=== PATIENT | male | born 1985 | race Caucasian/White ===

== ENCOUNTER 2016-07-30 10:50 | Emergency (ER) | payer BC ==
--- NOTE | 2016-07-30 11:22 | ERPHSYRPT ---
- History of Present Illness Time Seen by Provider: 07/30/16 11:17 Source: patient Exam Limitations: no limitations Patient Subjective Stated Complaint: pt states he was sitting at work and developed lower left back pain. denies any injury. denies any dysuria. denies any fever. Triage Nursing Assessment: pt pink, warm, dry. pt ambulated into er without difficulty. No swelling noted. Physician History: The patient is a 30-year-old male who developed left-sided low back pain while sitting at work this morning. It has begun to ease at this time. He denies injury to his back. He notes that 2 weeks ago he had same pain and after resting for a few minutes, the pain resolved. His past medical history is unremarkable. Timing/Duration: today Method of Injury: unknown Quality: aching Back Pain Location: paraspinous muscles (left) Severity of Pain-Max: severe Severity of Pain-Current: mild Modifying Factors: Improves With: nothing Associated Symptoms: denies symptoms Previous symptoms: same symptoms as today Allergies/Adverse Reactions: caffeine Allergy (Verified 07/30/16 11:10) red dye Allergy (Verified 07/30/16 11:10) Hx Tetanus, Diphtheria Vaccination/Date Given: Yes (up to date) Hx Influenza Vaccination/Date Given: No Hx Pneumococcal Vaccination/Date Given: No Immunizations Up to Date: Yes - Review of Systems Constitutional: No Fever, No Chills Eyes: No Symptoms Ears, Nose, & Throat: No Symptoms Respiratory: No Cough, No Dyspnea Cardiac: No Chest Pain, No Edema, No Syncope Abdominal/Gastrointestinal: No Abdominal Pain, No Nausea, No Vomiting, No Diarrhea Genitourinary Symptoms: No Dysuria Musculoskeletal: Back Pain Skin: No Rash Neurological: No Dizziness, No Focal Weakness, No Sensory Changes Psychological: No Symptoms Endocrine: No Symptoms Hematologic/Lymphatic: No Symptoms Immunological/Allergic: No Symptoms All Other Systems: Reviewed and Negative - Past Medical History Pertinent Past Medical History: Yes Other Medical History: thin bowel syndrome - Past Surgical History Past Surgical History: No - Social History Smoking Status: Current every day smoker How long have you smoked: 9 Exposure to second hand smoke: No Drug Use: none Patient Lives Alone: No - Nursing Vital Signs Temperature: 97.9 F Temperature Source: Oral Pulse Rate: 80 Respiratory Rate: 18 Pain Intensity: 3 - Physical Exam General Appearance: mild distress Eye Exam: PERRL/EOMI, eyes nml inspection Ears, Nose, Throat Exam: normal ENT inspection Neck Exam: normal inspection, non-tender, supple, full range of motion, No meningismus, No midline tenderness Respiratory Exam: normal breath sounds, lungs clear, No respiratory distress Cardiovascular Exam: regular rate/rhythm, normal heart sounds Gastrointestinal Exam: soft, No tenderness, No mass Rectal Exam: not done Back Exam: muscle spasm (lower left paraspinous) Extremity Exam: normal inspection, normal range of motion, No calf tenderness, No pedal edema Neurologic Exam: alert, oriented x 3, cooperative, spiritual advisor II-XII nml as tested, normal mood/affect, nml station & gait, sensation nml, No motor deficits Skin Exam: normal color, warm, dry, No rash SpO2 Interpretation: normal SpO2: 97 Oxygen Delivery: Room Air Ordered Tests: Medication Summary Generic Name Dose Route Start Last Admin Trade Name Freq PRN Reason Stop Dose Admin Ketorolac Tromethamine 60 mg 07/30/16 11:27 Toradol 30 Mg Injection IM 07/30/16 11:28 STAT ONE - Progress Progress: improved Counseled pt/family regarding: diagnosis, need for follow-up - Departure Time of Disposition: 11:27 Departure Disposition: Home Clinical Impression: Back spasm Condition: Stable Critical Care Time: No Additional Instructions: You have a spasm in the left back muscle. You given an injection of toradol 60 mg IM. Take flexeril 10 mg every 8 hrs as needed. Apply ice as needed. If the condition returns, please follow up with you PMD for further evaluation. Prescriptions: Cyclobenzaprine HCl [Flexeril] 10 mg PO TID PRN #12 tablet
[2016-07-30] MEDS ORDERED: TORAdol 30 mg Injection IM ONE (11:27)
[2016-07-30] MEDS ORDERED: TORAdol 30 mg Injection ONE (11:30)
[2016-07-30 12:01] VITALS: BP 105/59; PULSE 85; O2SAT 98
== END 2016-07-30 12:01 | disposition home or self-care (01) ==
LOC: ED 10:50
DX: M62.830 Muscle spasm of back (principal); M54.5 Low back pain
CPT/HCPCS: 96372; 99284; J1885

== ENCOUNTER 2016-09-12 14:24 | Emergency (ER) | payer BC ==
[2016-09-12 14:33] VITALS: O2SAT 97
[2016-09-12] MEDS ORDERED: TORAdol 30 mg Injection IM ONE (14:45)
[2016-09-12] MEDS ORDERED: TORAdol 30 mg Injection ONE (14:49)
--- NOTE | 2016-09-12 14:51 | ERPHSYRPT ---
- History of Present Illness Time Seen by Provider: 09/12/16 14:40 Source: patient Exam Limitations: no limitations Patient Subjective Stated Complaint: back pain Triage Nursing Assessment: back pain started today. states started having a back spasm and took a zanaflex and is scheduled for PT on 09/27. denies injury. c /o lt lower back pain and radiates to lt knee Physician History: 30-year-old white male arrives with complaint of pain in his back low left thorasic region which she describes as a spasm which occurred at 1:00 this afternoon at work he states this was quite severe he states he took a Zanaflex and some Naprosyn history the feel better but still has some tenderness. Patient states he has had x-rays for his back is also been seen in this emergency room secondary to this same pain and got good relief with Toradol. Patient states he has an appointment to see physical therapy for his back pain on September 27, 2016. Past medical history includes thin bowel syndrome patient has not had any urinary symptoms no other complaints Timing/Duration: today (1:00 this afternoon) Method of Injury: other (spasmmile at work) Quality: cramping Back Pain Location: T-spine (low thoracic left) Back Pain Radiation: upper legs (left knee) Severity of Pain-Max: moderate Severity of Pain-Current: mild Modifying Factors: Improves With: movement Associated Symptoms: lower back pain (low thorasic left), No fever, No chills, No sweating, No urinary incontinence, No loss of bowel control, No constipation , No nausea, No vomiting, No problems urinating, No light-headedness, No dizziness, No numbness in legs/feet, No weakness, No sensory/motor loss, No tingling in legs/feet, No muscle spasms Previous symptoms: same symptoms as today, recently seen (seen last month for same complaint in this ER) Allergies/Adverse Reactions: caffeine Allergy (Verified 09/12/16 14:32) red dye Allergy (Verified 09/12/16 14:32) Home Medications: Tizanidine HCl 4 mg [Zanaflex 4 MG] 4 mg PO TIDPRN 09/12/16 [History] Hx Tetanus, Diphtheria Vaccination/Date Given: Yes Hx Influenza Vaccination/Date Given: No Hx Pneumococcal Vaccination/Date Given: No Immunizations Up to Date: Yes - Review of Systems Constitutional: No Fever, No Chills Eyes: No Symptoms Ears, Nose, & Throat: No Symptoms Respiratory: No Cough, No Dyspnea Cardiac: No Chest Pain, No Edema, No Syncope Abdominal/Gastrointestinal: No Abdominal Pain, No Nausea, No Vomiting, No Diarrhea Genitourinary Symptoms: No Dysuria Musculoskeletal: Back Pain, No Arthralgias, No Neck Pain, No Deformity, No Fall , No Injury, No Joint Redness, No Joint Pain, No Joint Swelling, No Myalgias Skin: No Rash Neurological: No Dizziness, No Focal Weakness, No Sensory Changes Psychological: No Symptoms Endocrine: No Symptoms All Other Systems: Reviewed and Negative - Past Medical History Pertinent Past Medical History: Yes Other Medical History: thin bowel syndrome - Past Surgical History Past Surgical History: No - Social History Smoking Status: Current every day smoker How long have you smoked: 9 Exposure to second hand smoke: No Drug Use: none Patient Lives Alone: No - Nursing Vital Signs Temperature: 97.7 F Temperature Source: Oral Pulse Rate: 87 Respiratory Rate: 18 Pain Intensity: 4 - Physical Exam General Appearance: no apparent distress, mild distress, alert Eye Exam: PERRL/EOMI, eyes nml inspection Ears, Nose, Throat Exam: normal ENT inspection, TMs normal, pharynx normal, moist mucous membranes, No dry mucous membranes, No TM abnormal (R), No TM abnormal (L), No pharyngeal erythema Neck Exam: normal inspection, non-tender, supple, full range of motion, No meningismus, No midline tenderness Respiratory Exam: normal breath sounds, lungs clear, No respiratory distress Cardiovascular Exam: regular rate/rhythm, normal heart sounds Gastrointestinal Exam: soft, normal bowel sounds, No tenderness, No mass Back Exam: normal range of motion, 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) Extremity Exam: normal inspection, normal range of motion, No calf tenderness, No pedal edema Peripheral Pulses: dorsalis-pedis (R): 2+, dorsalis-pedis (L): 2+ Neurologic Exam: alert, oriented x 3, cooperative, insurance loss control surveyor II-XII nml as tested, normal mood/affect, nml station & gait, sensation nml, No motor deficits Skin Exam: normal color, warm, dry, No rash SpO2 Interpretation: normal (97%) SpO2: 97 Oxygen Delivery: Room Air - Course Nursing assessment & vital signs reviewed: Yes Ordered Tests: Active Orders 24 hr Category Date Time Status UA W/ MICROSCOPIC Stat Lab 09/12/16 14:55 Completed Medication Summary Discontinued Medications Generic Name Dose Route Start Last Admin Trade Name Yo PRN Reason Stop Dose Admin Ketorolac Tromethamine 60 mg 09/12/16 14:45 09/12/16 14:50 Toradol 30 Mg Injection IM 09/12/16 14:46 60 mg STAT ONE Administration Ketorolac Tromethamine Confirm 09/12/16 14:49 Toradol 30 Mg Injection Administered 09/12/16 14:50 Dose 60 mg .ROUTE .STK-MED ONE Lab/Rad Data: Laboratory Results 09/12/16 Range/Units 14:55 Ur Collection Type CCMS Urine Color PETEY (YELLOW) Urine Appearance CLEAR (CLEAR) Urine pH 6.5 (5-6) Ur Specific [place] >=1.030 (1.005-1.025) Urine Protein >=300 (Negative) Urine Glucose (UA) NEGATIVE (NEGATIVE) mg/dL Urine Ketones SMALL-15 (NEGATIVE) Urine Nitrite NEGATIVE (NEGATIVE) Urine Bilirubin SMALL (NEGATIVE) Urine Urobilinogen 0.2 (0-1) mg/dL Urine WBC (Auto) NEGATIVE (NEGATIVE) Urine RBC (Auto) TRACE-INTACT (0-5) Giorgi/ul Urine Microscopic RBC 2-5 (0-2) /HPF Urine Microscopic WBC 0-2 (0-5) /HPF Urine Bacteria FEW (NEGATIVE) /HPF Urine Mucus MANY (NEGATIVE) /HPF Urine Sperm PRESENT (NEGATIVE) /HPF Specimen Received 09-12-16 1509 - Progress Progress: improved Progress Note: 09/12/16 14:49 30-year-old white male with history of low left thorasic back pain in the past he has back spasms and is on Xanaflex, arrives with complaint of pain in his left low thorasic region at work at 1:00 patient states it is quite severe he took a Zanaflex and Naprosyn he is starting to feel better but still has pain. Patient has had x-rays of his back he is also been set up for physical therapy through his work. Patient was seen in this emergency room about a month ago for the same he got good relief with Toradol. Will give patient Toradol IM. 09/12/16 14:54 09/12/16 15:24 Patient is feeling better after Toradol. Patient does have some protein in his urine also a small amount of ketones. Patient is advised to go ahead and take his Zanaflex as directed Tylenol for pain avoid nonsteroidals at this point in time. He is to increase his fluid intake. He has been advised to follow-up with his family doctor due to protein in his urine and have this rechecked. And follow-up with his company physician and/or physical therapy for his back spasms. - Departure Time of Disposition: 15:25 Departure Disposition: Home Clinical Impression: Back spasm Back pain Qualifiers: Back pain location: thoracic back pain Chronicity: acute Back pain laterality: left Qualified Code(s): M54.6 - Pain in thoracic spine Proteinuria Qualifiers: Proteinuria type: unspecified Qualified Code(s): R80.9 - Proteinuria, unspecified Condition: Fair Critical Care Time: No Referrals: JESSIE PHILLIPS [Primary Care Provider] - Additional Instructions: Return home. Take your Zanaflex as directed (you have this at home) as needed for spasms. Tylenol as needed for pain. Avoid nonsteroidal anti-inflammatories at this time. Follow-up with your family doctor (you have protein in your urine this needs to be followed up with your family doctor) Follow-up with your family doctor or your company physician or PT for back spasms. Return for acute distress or for severe symptoms.
[2016-09-12 15:19] LABS: COMPLETE URINE MICROSCOPIC? YES; Collection Type CCMS; Ph 6.5 (5-6)
[2016-09-12 15:20] LABS: Bacteria FEW /HPF (NEGATIVE); Mucus MANY /HPF (NEGATIVE); WBC 0-2 /HPF (0-5)
[2016-09-12 15:33] VITALS: BP 126/78; PULSE 84
== END 2016-09-12 15:33 | disposition home or self-care (01) ==
LOC: ED 14:24
DX: M54.6 Pain in thoracic spine (principal); R80.9 Proteinuria, unspecified; M62.830 Muscle spasm of back
CPT/HCPCS: 81000; 96372; 99283; 99284; J1885

== ENCOUNTER 2016-10-05 10:14 | Emergency (ER) | payer BC ==
[2016-10-05] MEDS ORDERED: TORAdol 30 mg Injection IM ONE (10:41)
[2016-10-05] MEDS ORDERED: Norflex 60 MG/2 ML IM ONE (10:42)
--- NOTE | 2016-10-05 10:51 | ERPHSYRPT ---
- History of Present Illness Time Seen by Provider: 10/05/16 10:31 Source: patient, family () Exam Limitations: no limitations Patient Subjective Stated Complaint: having lower back spasms. hx of chronic back pain being treated with physical therapy and xanaflex Triage Nursing Assessment: ambulated slowly to room holding lower back. skin w/ d, color normal. describes pain as a spasm. Physician History: patient developed acute left lower back spasm and pain while walking this am; prior hx off and on for four months; this is fourth acute exacerbation; no known cause or initial event; no prior hx before; no injury; XR and lab including urine negative in past; rehab and PT and meds not working; took pain meds and muscle relaxer in am; pain form 10 - 6; heading out on vacation; poain increased with motion that uses back muscles on left; no radiation; no fefver or trauma; no exposures; no hematuria Timing/Duration: today, hour(s) (3) Method of Injury: unknown Quality: dull, cramping Back Pain Location: lumbar spine (left) Severity of Pain-Max: severe Severity of Pain-Current: moderate Modifying Factors: Improves With: immobilization (helps), movement (aggravates) Associated Symptoms: lower back pain Previous symptoms: same symptoms as today, recently seen, recently treated Allergies/Adverse Reactions: caffeine Allergy (Verified 10/05/16 10:27) red dye Allergy (Verified 10/05/16 10:27) Home Medications: Tizanidine HCl 4 mg [Zanaflex 4 MG] 4 mg PO TIDPRN 09/12/16 [History] Hx Tetanus, Diphtheria Vaccination/Date Given: Yes Hx Influenza Vaccination/Date Given: No Hx Pneumococcal Vaccination/Date Given: No Immunizations Up to Date: No - Review of Systems Constitutional: No Symptoms Eyes: No Symptoms Ears, Nose, & Throat: No Symptoms Respiratory: No Cough, No Dyspnea, No Wheezing Cardiac: No Chest Pain, No Palpitations, No Syncope Abdominal/Gastrointestinal: No Abdominal Pain, No Nausea, No Vomiting, No Diarrhea Genitourinary Symptoms: No Dysuria, No Frequency, No Hematuria, No Incontinence , No Flank Pain, No Testicle Pain Musculoskeletal: Back Pain (left lower) Skin: No Symptoms Neurological: No Symptoms Psychological: No Symptoms Endocrine: No Symptoms Hematologic/Lymphatic: No Symptoms Immunological/Allergic: No Symptoms - Past Medical History Pertinent Past Medical History: Yes Neurological History: No Pertinent History Cardiac History: No Pertinent History Respiratory History: No Pertinent History Endocrine Medical History: No Pertinent History Musculoskeletal History: No Pertinent History Other Medical History: NONE NOTED - Past Surgical History Past Surgical History: No - Social History Smoking Status: Current every day smoker How long have you smoked: 9 Exposure to second hand smoke: No Alcohol Use: Socially Drug Use: none Patient Lives Alone: No Significant Family History: no pertinent family hx - Nursing Vital Signs Temperature: 98.2 F Temperature Source: Oral Pulse Rate: 76 Respiratory Rate: 16 Pain Intensity: 7 - Physical Exam General Appearance: moderate distress (back pain), alert, thin Eye Exam: PERRL/EOMI, eyes nml inspection, No photophobia Ears, Nose, Throat Exam: normal ENT inspection, TMs normal, pharynx normal, moist mucous membranes Neck Exam: normal inspection, non-tender, supple, full range of motion, No meningismus, No JVD Respiratory Exam: normal breath sounds, lungs clear, airway intact, No chest tenderness, No respiratory distress Cardiovascular Exam: regular rate/rhythm, normal heart sounds, normal peripheral pulses, capillary refill 2-3 sec, No murmur Gastrointestinal Exam: soft, normal bowel sounds, No tenderness, No distention, No mass, No guarding, No rebound, No organomegaly Rectal Exam: deferred Back Exam: normal range of motion (with pain with stress to left lower LS muscles), muscle spasm (left lower L1-3 on left), No CVA tenderness, No vertebral tenderness, No rash, No point tenderness Extremity Exam: normal inspection, normal range of motion, No pelvis stable, No paralysis, No mehrdad's sign Peripheral Pulses: carotid (R): 4+, carotid (L): 4+, femoral (R): 4+, femoral (L ): 4+ Neurologic Exam: alert, oriented x 3, cooperative, kitchen worker II-XII nml as tested, normal mood/affect, nml cerebellar function, nml station & gait, sensation nml Skin Exam: normal color, warm, dry, No rash, No petechiae Lymphatic Exam: No adenopathy SpO2 Interpretation: normal SpO2: 98 Oxygen Delivery: Room Air - Course Nursing assessment & vital signs reviewed: Yes Ordered Tests: Active Orders 24 hr Category Date Time Status Re-Check Vital Signs STAT Care 10/05/16 10:41 Active Medication Summary Discontinued Medications Generic Name Dose Route Start Last Admin Trade Name oY PRN Reason Stop Dose Admin Ketorolac Tromethamine 60 mg 10/05/16 10:41 10/05/16 10:53 Toradol 30 Mg Injection IM 10/05/16 10:42 60 mg STAT ONE Administration Ketorolac Tromethamine Confirm 10/05/16 10:52 Toradol 30 Mg Injection Administered 10/05/16 10:53 Dose 60 mg .ROUTE .STK-MED ONE Orphenadrine Citrate 60 mg 10/05/16 10:42 10/05/16 10:53 Norflex 60 Mg/2 Ml IM 10/05/16 10:43 60 mg STAT ONE Administration Orphenadrine Citrate Confirm 10/05/16 10:52 Norflex 60 Mg/2 Ml Administered 10/05/16 10:53 Dose 60 mg .ROUTE .STK-MED ONE - Progress Progress: improved (after meds), re-examined (after meds) Progress Note: 10/05/16 10:55 at bedside; discussed treatment plan and will medicate and recheck 10/05/16 11:14 rechecked and at bedside; pain and spasm improved aftger meds; pain now 2/ 10 and tolerable; instructions given Counseled pt/family regarding: diagnosis, need for follow-up, smoking cessation - Departure Time of Disposition: 11:15 Departure Disposition: Home Clinical Impression: Back spasm, Back pain Condition: Stable Critical Care Time: No Referrals: JESSIE PHILLIPS [Primary Care Provider] - Instructions: Low Back Pain Additional Instructions: Follow-up with family doctor as directed. Call for appointment. Return if any problems. If you smoke please stop. Call or follow up with your family doctor for assistance if you need it to stop. Please wear your seatbelt when driving. Have a nice day. Thank you for allowing us to participate in your care today. :o) Dr John Weber Prescriptions: Ketorolac Tromethamine [Toradol] 10 mg PO TID #14 tablet
[2016-10-05] MEDS ORDERED: Norflex 60 MG/2 ML ONE (10:52)
[2016-10-05] MEDS ORDERED: TORAdol 30 mg Injection ONE (10:52)
[2016-10-05 11:28] VITALS: BP 119/70; PULSE 77; O2SAT 100
== END 2016-10-05 11:28 | disposition home or self-care (01) ==
LOC: ED 10:14
DX: M62.830 Muscle spasm of back (principal); M54.9 Dorsalgia, unspecified
CPT/HCPCS: 96372; 99284; J1885; J2360